=== PATIENT | male | born 1985 | race Two or more races ===

== ENCOUNTER 2017-07-02 10:03 | Emergency (ER) | payer MEDICAID ==
[~2017-07-02] VITALS: Ht 162.6 cm; Wt 72.6 kg
[2017-07-02 10:52] LABS: BASOPHILS % (AUTO) 0.3 % (0.0-2.0); EOSINOPHILS # (AUTO) 0.1 /CMM (0.0-0.7); EOSINOPHILS % (AUTO) 1.4 % (0.0-6.0); HEMATOCRIT 45 % (39-51); HEMOGLOBIN 14.9 g/dL (13.5-17.5); LYMPHOCYTES # (AUTO) 1.4 /CMM (0.8-4.8); LYMPHOCYTES % (AUTO) 13.1 % (20.0-44.0); MEAN CORPUSCULAR HEMOGLOBIN 30 PG (26.0-33.0); MEAN CORPUSCULAR HGB CONC 33 g/dl (31.0-36.0); MEAN CORPUSCULAR VOLUME 90 fL (80-96); MONOCYTES # (AUTO) 0.6 /CMM (0.1-1.30); MONOCYTES % (AUTO) 6.2 % (2.0-12.0); NEUTROPHILS # (AUTO) 8.3 /CMM (1.8-8.9); PLATELET COUNT (AUTO) 345 /CMM (150-450); RDW COEFFICIENT OF VARIATION 12.8 (11.5-15.0); RED BLOOD CELL COUNT(AUTO) 4.99 MIL/uL (4.5-6.0); WHITE BLOOD COUNT (AUTO) 10.5 K/uL (4.3-11.0)
[2017-07-02 10:59] LABS: CALCIUM, SERUM 9.3 mg/dL (8.5-10.1); CARBON DIOXIDE 31 mmol/L (21-32); CHLORIDE 101 mmol/L (98-107); CREATININE 0.9 mg/dL (0.6-1.3); GLUCOSE 84 mg/dL (74-106); POTASSIUM 3.8 mmol/L (3.5-5.1); SODIUM SERUM 138 mmol/L (136-145); UREA NITROGEN, BLOOD 15 mg/dL (7-18)
[2017-07-02] MEDS ORDERED: ZIPRASIDONE MESYLATE 20 MG/VIAL VIAL IM ONE ×2 (11:00→11:25)
[2017-07-02 11:05] LABS: ALANINE AMINOTRANSFERASE 43 U/L (12-78); ALBUMIN 3.9 g/dL (3.4-5.0); ALCOHOL, BLOOD < 3 mg/dL (0-0); ALKALINE PHOSPHATASE 69 U/L (46-116); ASPARTATE AMINOTRANSFERASE 36 U/L (15-37); BILIRUBIN,DIRECT 0.1 mg/dL (0.0-0.2); BILIRUBIN,TOTAL 0.4 mg/dL (0.2-1.0); TOTAL PROTEIN, SERUM 7.2 g/dL (6.4-8.2)
[2017-07-02 11:06] LABS: ACETAMINOPHEN 0 ug/ml (10-30); SALICYLATE 2.4 mg/dL (2.8-20.0)
[2017-07-02] MEDS ORDERED: WATER FOR INJECTION,STERILE 10 ML ONE (11:25)
--- NOTE | 2017-07-02 11:37 | NUR ---
RECEIVED PT IN BED, CALM AND COOPERATIVE. MEDICATED ORDERED. FAMILY MEMBER AT BS. DENIES SI/HI. VSS. WITH C/O PAIN ON R ANKLE FOR OLD FRACTURE. MD AWARE WITH VERBAL ORDERS FOR MOTRIN PO 800MG. ORDERS CARRIED OUT. SAFETY AND COMFORT MEASURES PROVIDED. WILL MONITOR.
[2017-07-02] MEDS ORDERED: IBUPROFEN 400 MG TABLET ONE (11:46)
[2017-07-02] MEDS ORDERED: IBUPROFEN 400 MG TABLET PO ONE (12:00)
[2017-07-02 12:28] VITALS: BP 102/56
--- NOTE | 2017-07-02 12:48 | NUR ---
CALLED MELVIN BLISS FOR PSYCH EVAL
--- NOTE | 2017-07-02 12:50 | NUR ---
PT REFUSES TO GIVE URINE SAMPLE AT THIS TIME.
--- NOTE | 2017-07-02 14:14 | NUR ---
Patient is resting comfortably in bed with eyes closed. Easily aroused. VSS
--- NOTE | 2017-07-02 14:20 | NUR ---
MELVIN BLISS AT BS FOR OSMAN.
[2017-07-02 16:20] LABS: APPEARANCE,URINE CLEAR (CLEAR); BILIRUBIN,URINE NEGATIVE (NEGATIVE); BLOOD, URINE NEGATIVE Ery/uL (NEGATIVE); COLOR,URINE YELLOW (YELLOW); KETONES,URINE NEGATIVE (NEGATIVE); LEUKOCYTE ESTERASE ,URINE NEGATIVE (NEGATIVE); NITRITE, URINE NEGATIVE (NEGATIVE); PROTEIN,URINE NEGATIVE (NEGATIVE); UGLUCOSE NEGATIVE (NEGATIVE); UROBILINOGEN,URINE 0.2 EU/dL (0.2)
== END 2017-07-02 15:20 | disposition home or self-care (01) ==
LOC: ER 10:05
DX: Z02.89 Encounter for other administrative examinations (principal); F20.9 Schizophrenia, unspecified; F19.10 Other psychoactive substance abuse, uncomplicated
CPT/HCPCS: 36415; 73610; 80048; 80076; 80305; 80329; 81001; 85025; 96372; 99285; A4606; G0480 ×2; J3486; Z7610; 81000-TC

== ENCOUNTER 2017-07-02 20:07 | Emergency (ER) | payer MEDICAID ==
[~2017-07-02] VITALS: Ht 172.7 cm; Wt 77.1 kg
[2017-07-02 20:11] VITALS: BP 136/79
--- NOTE | 2017-07-02 21:03 | NUR ---
CALLED FOR ROOM ASSIGNMENT X4; NOT IN LOBBY. INFORMED PF LEFT.
== END 2017-07-02 21:05 | disposition left against medical advice (07) ==
LOC: ER 20:08
DX: Z53.21 Procedure and treatment not carried out due to patient leaving prior to being seen by health care provider (principal)
CPT/HCPCS: A4606; Z7610

== ENCOUNTER 2017-07-03 02:49 | Emergency (ER) | payer MEDICAID ==
[~2017-07-03] VITALS: Ht 165.1 cm; Wt 77.1 kg
[2017-07-03 03:02] VITALS: BP 123/69
--- NOTE | 2017-07-03 03:35 | NUR ---
PT GIVEN ACI AND PT WALKED OUT OF THE ER WITH A STEADY GAIT, PT STATES HE REFUSES TO SIGN HIS DISCHARGE PAPERWORK, MADE AWARE
== END 2017-07-03 03:37 | disposition home or self-care (01) ==
LOC: ER 02:51
DX: Z00.8 Encounter for other general examination (principal); R07.9 Chest pain, unspecified; F12.10 Cannabis abuse, uncomplicated
CPT/HCPCS: 71010; 99283; A4606; Z7610

== ENCOUNTER 2017-07-03 09:28 | Emergency (ER) | payer MEDICAID ==
[~2017-07-03] VITALS: Ht 172.7 cm; Wt 79.4 kg
[2017-07-03 09:28] VITALS: BP 132/78
[2017-07-03] MEDS ORDERED: LORAZEPAM 1 MG TABLET ONE (09:59)
[2017-07-03] MEDS ORDERED: LORAZEPAM 1 MG TABLET PO ONE (10:00)
[2017-07-03] MEDS ORDERED: IV NS 0.9% 1,000 ML BAG IV ONE (10:00)
--- NOTE | 2017-07-03 10:08 | NUR ---
REFUSED IV INSERTION/IVF, DR RODRIGUEZ INFORMED AND STS THAT HE MAY LEAVE.
== END 2017-07-03 10:15 | disposition home or self-care (01) ==
LOC: ER 09:30
DX: E86.0 Dehydration (principal); F10.10 Alcohol abuse, uncomplicated; F15.10 Other stimulant abuse, uncomplicated
CPT/HCPCS: 99282; A4606; Z7610; J7030

== ENCOUNTER 2017-07-17 14:23 | Emergency (ER) | payer MEDICAID ==
[~2017-07-17] VITALS: Ht 160 cm; Wt 68.0 kg
[2017-07-17 14:23] VITALS: BP 137/86
== END 2017-07-17 15:14 | disposition home or self-care (01) ==
LOC: ER 14:24
DX: T25.222A Burn of second degree of left foot, initial encounter (principal); T25.221A Burn of second degree of right foot, initial encounter; F10.10 Alcohol abuse, uncomplicated; Z98.890 Other specified postprocedural states; X08.8XXA Exposure to other specified smoke, fire and flames, initial encounter; Y93.89 Activity, other specified; Y92.89 Other specified places as the place of occurrence of the external cause; Y99.8 Other external cause status
CPT/HCPCS: 99283; A4606; A6402; Z7610

== ENCOUNTER 2017-07-17 21:15 | Emergency (ER) | payer MEDICAID ==
[~2017-07-17] VITALS: Ht 160 cm; Wt 68.0 kg
--- NOTE | 2017-07-17 21:18 | NUR ---
PT MIESHA TO ER BED 12. PER REPORT, WAS AT A PD STATION ACTING [place]. ANXIOUS S/P TAKING METH. WAS SEEN EARLIER AND DISCHARGED FOR FOOT BLISTERS. PLACED ON MONITOR. AWAITING MD BREWER.
[2017-07-17] MEDS ORDERED: diphenhydrAMINE HCL 50 MG/ML VIAL ONE (21:28)
[2017-07-17] MEDS ORDERED: HALOPERIDOL LACTATE INJ 5 MG/ML VIAL ONE (21:28)
[2017-07-17] MEDS ORDERED: LORAZEPAM INJ 2 MG/ML VIAL ONE (21:29)
--- NOTE | 2017-07-17 21:29 | NUR ---
ESE MCDANIELS AT BEDSIDE FOR EVAL.
[2017-07-17] MEDS ORDERED: LORAZEPAM INJ 2 MG/ML VIAL IM ONE ×2 (21:30→22:00)
[2017-07-17] MEDS ORDERED: HALOPERIDOL DECANOATE IM 100 MG/ML AMPUL IM ONE (21:30)
[2017-07-17] MEDS ORDERED: diphenhydrAMINE HCL 50 MG/ML VIAL IM ONE (21:30)
[2017-07-17 21:54] LABS: BASOPHILS # (AUTO) 0.1 /CMM (0.0-0.2); BASOPHILS % (AUTO) 0.8 % (0.0-2.0); EOSINOPHILS # (AUTO) 0.2 /CMM (0.0-0.7); EOSINOPHILS % (AUTO) 1.6 % (0.0-6.0); HEMATOCRIT 48 % (39-51); LYMPHOCYTES # (AUTO) 3.3 /CMM (0.8-4.8); LYMPHOCYTES % (AUTO) 24.6 % (20.0-44.0); MEAN CORPUSCULAR HEMOGLOBIN 30 PG (26.0-33.0); MEAN CORPUSCULAR HGB CONC 33 g/dl (31.0-36.0); MEAN CORPUSCULAR VOLUME 91 fL (80-96); MONOCYTES # (AUTO) 0.8 /CMM (0.1-1.30); MONOCYTES % (AUTO) 6.3 % (2.0-12.0); NEUTROPHILS # (AUTO) 8.9 /CMM (1.8-8.9); NEUTROPHILS % (AUTO) 66.7 % (43.0-81.0); PLATELET COUNT (AUTO) 457 /CMM (150-450); RDW COEFFICIENT OF VARIATION 12.1 (11.5-15.0); RED BLOOD CELL COUNT(AUTO) 5.28 MIL/uL (4.5-6.0); WHITE BLOOD COUNT (AUTO) 13.3 K/uL (4.3-11.0)
[2017-07-17] MEDS ORDERED: HALOPERIDOL LACTATE INJ 5 MG/ML VIAL IM ONE (22:00)
[2017-07-17 22:03] LABS: CALCIUM, SERUM 9.8 mg/dL (8.5-10.1); CARBON DIOXIDE 13 mmol/L (21-32); CHLORIDE 100 mmol/L (98-107); CREATININE 1.6 mg/dL (0.6-1.3); GLUCOSE 146 mg/dL (74-106); POTASSIUM 3.3 mmol/L (3.5-5.1); SODIUM SERUM 138 mmol/L (136-145); UREA NITROGEN, BLOOD 18 mg/dL (7-18)
[2017-07-17 22:09] LABS: ACETAMINOPHEN 0 ug/ml (10-30); ALANINE AMINOTRANSFERASE 53 U/L (12-78); ALBUMIN 4.5 g/dL (3.4-5.0); ALCOHOL, BLOOD < 3 mg/dL (0-0); ALKALINE PHOSPHATASE 65 U/L (46-116); ASPARTATE AMINOTRANSFERASE 54 U/L (15-37); BILIRUBIN,DIRECT 0.2 mg/dL (0.0-0.2); BILIRUBIN,TOTAL 0.8 mg/dL (0.2-1.0); SALICYLATE 2.8 mg/dL (2.8-20.0); TOTAL PROTEIN, SERUM 7.9 g/dL (6.4-8.2)
[2017-07-17 22:32] LABS: APPEARANCE,URINE CLEAR (CLEAR); BILIRUBIN,URINE NEGATIVE (NEGATIVE); BLOOD, URINE NEGATIVE Ery/uL (NEGATIVE); COLOR,URINE YELLOW (YELLOW); KETONES,URINE 1+ (NEGATIVE); LEUKOCYTE ESTERASE ,URINE NEGATIVE (NEGATIVE); NITRITE, URINE NEGATIVE (NEGATIVE); PROTEIN,URINE NEGATIVE (NEGATIVE); UGLUCOSE NEGATIVE (NEGATIVE); UROBILINOGEN,URINE 0.2 EU/dL (0.2)
[2017-07-17 22:38] LABS: BACTERIA,URINE Rare /HPF (None Seen); RBC,URINE 0-2 /HPF (0-2); SQUAMOUS EPITHELIAL CELL,UR Rare /HPF (None Seen); WBC,URINE 0-2 /HPF (0-3)
--- NOTE | 2017-07-17 23:06 | NUR ---
PT IS SLEEPING, ON MONITOR W/ STABLE VITALS. WILL CONT TO MONITOR.
--- NOTE | 2017-07-17 23:20 | NUR ---
REPORT GIVEN TO CHARGE NURSE GIANNI FOR JYOTI.
[2017-07-18 01:00] VITALS: BP 125/65
--- NOTE | 2017-07-18 01:01 | NUR ---
Patient given written and verbal discharge instructions. Patient verbalizes understanding of instructions. Patient is ambulatory with steady gait. Refuses offer of [facility] placement. Patient given list of available shelters in surrounding area.
== END 2017-07-18 01:01 | disposition home or self-care (01) ==
LOC: ER 21:17
DX: F15.10 Other stimulant abuse, uncomplicated (principal); F10.10 Alcohol abuse, uncomplicated; Z98.890 Other specified postprocedural states
CPT/HCPCS: 36415; 80048; 80076; 80305; 80329; 81001; 85025; 93005; 96372 ×3; 99285; A4606; G0480 ×2; J1200; J1630; J1631; J2060; Z7610; 81000-TC